=== PATIENT | male | born 1950 | race Caucasian/White ===

== ENCOUNTER 2022-04-08 07:58 | Emergency (ER) | payer MEDICAID, SELFPAY ==
--- NOTE | ~2022-04-08 | XR_ITS ---
EXAMINATION: XR CHEST CLINICAL INFORMATION: Cough. COMPARISON: None TECHNIQUE: Frontal view of the chest was obtained. FINDINGS: Bibasilar airspace opacities likely represent hypoventilatory, atelectatic changes or pleural parenchymal scar, less likely to be infiltrate. There are no prior studies available for comparison. The remainder of the lung carlton appear clear. The cardiac mediastinal silhouette is within normal limit. No evidence of any pleural effusion or pneumothorax. The visualized upper abdomen is unremarkable. XR/XR chest 1V IMPRESSION: Bibasilar airspace disease likely represent hypoventilatory, atelectatic changes or focal parenchymal scar and less likely to be infiltrate.
[2022-04-08 08:45] VITALS: BP 131/78; PULSE 94; RESP 18; TEMP 37.8; O2SAT 95; BMI 29.5
[2022-04-08 09:04] LABS: Strep A Nucleic Acid Negative (Negative)
[2022-04-08 09:10] LABS: COVID-19 Test Negative (Negative); IDNOW Serial# 16C4AD1C; Influenza A Positive (Negative); Influenza B2 Negative (Negative)
--- NOTE | 2022-04-08 10:03 | ED.GENADULT ---
HPI - General Adult General Chief complaint: Upper Respiratory Symptoms Stated complaint: Flu symptoms Time Seen by Provider: 04/08/22 09:48 Source: patient and family (daughter) Mode of arrival: ambulatory Limitations: no limitations History of Present Illness HPI narrative: Patient is a 71 year old male presenting to the emergency department today with a cough and a sore throat. Patient states that for the last few days he has had a cough and now he is also having a sore throat. Patient denies any dizziness, lightheadedness, abdominal pain, nausea, vomiting, fever, chills, blurry vision, double vision, loss of vision, chest pain, difficulty breathing, shortness of breath, back pain, night sweats, pain with urination, increased urinary frequency, increased urinary urgency, blood in his urine or stool, syncope or a near syncopal episode, recent trauma or falls, bowel incontinence, bladder incontinence, bowel retention, bladder retention, or any other complaints at this time. Onset (ago): day(s) Severity: mild Severity scale (1-10): 3 Quality: dull Pain Consistency: constant Relieving factors: none Exacerbating factors: none Associated symptoms: cough Treatments prior to arrival: none Related Data Previous Rx's Medication Instructions Recorded benzonatate 100 mg capsule 100 mg PO TID PRN 7 Days #21 cap 04/08/22 lidocaine HCl 2 % mucosal solution 1 ml MUCOUS MEMBRANE BID PRN 7 04/08/22 (Lidocaine Viscous) Days #100 ml penicillin V potassium 500 mg 500 mg PO BID 10 Days #20 tab 04/08/22 tablet Allergies Allergy/AdvReac Type Severity Reaction Status Date / Time No Known Allergies Allergy Verified 04/08/22 08:47 Review of Systems Constitutional: Constitutional: Reports no additional constitutional complaints, Denies chills, Denies fever(s) and Denies night sweats Eyes: Eyes: Reports no additional eye complaints, Denies blurry vision, Denies change in vision, Denies diplopia, Denies eye discharge, Denies loss of vision and Denies eye pain ENT: Denies dizziness and Reports sore throat Cardiovascular: Cardiovascular: Reports no additional cardiovascular complaints, Denies chest pain, Denies lightheadedness, Denies Loss of Consciousness and Denies dyspnea Respiratory: Respiratory: Reports no additional respiratory complaints, Reports cough and Denies dyspnea Gastrointestinal: Gastrointestinal: Reports no additional gastrointestinal complaints, Denies abdominal pain, Denies melena, Denies hematochezia, Denies change in bowel habits and Denies change in stool character Genitourinary: Genitourinary: Reports no additional male genitourinary complaints, Denies hematuria, Denies oliguria, Denies difficulty urinating, Denies dysuria, Denies urinary frequency, Denies urinary hesitancy, Denies urinary incontinence and Denies urinary urgency Musculoskeletal: Musculoskeletal: Reports no additional musculoskeletal complaints, Denies numbness and Denies tingling Neurologic: Denies dizziness, Denies loss of vision, Denies numbness and Denies tingling Psychiatric: Psychiatric: Reports no additional psychiatric complaints Endocrine: Endocrine: Reports no additional endocrine complaints Hematologic/Lymphatic: Hematologic/Lymphatic: Reports no additional hematologic/lymphatic complaints Allergic/Immunologic: Allergic/Immunologic: Reports no additional allergic/immunologic complaints [facility] Past Medical History Attestation statement: The following information was validated with the patient. Source: old records reviewed Social History Social History Advance Directives: No Advance Directives Information Provided: Yes Physical Exam ED Vital Signs: Vital Signs - 24 hr 04/08/22 08:45 Temperature 100.0 F Pulse Rate 94 Respiratory Rate 18 Blood Pressure 131/78 Pulse Oximetry 95 BMI result Body Mass Index 29.5 Const General: cooperative, no acute distress, alert and awake Nutritional Appearance: well nourished Orientation/consciousness: patient oriented x3 Limitations: no limitations HENMT Head: Yes normal to inspection and Yes atraumatic Ears: hearing grossly normal bilaterally and external ears normal General nose exam: Normal external nose present, no nasal discharge noted and no epistaxis Face and sinus: Yes normal facial exam, No abrasion and No laceration Mouth: no drooling, no muffled voice and other (posterior pharynx is erythematous) Eyes General: appearance normal, both eyes and all related structures Periorbital: periorbital findings normal Eyelids: Yes eyelids normal Conjunctivae: conjunctivae normal Pupils: Equal, round and reactive pupils present EOM: EOMs intact bilaterally Neck Neck: Yes normal visual inspection, Yes full ROM and Yes no lymphadenopathy Chest Chest palpation & inspection: normal inspection of the chest Resp Effort & Inspection: normal respiratory effort and able to speak in complete sentences Auscultation: clear to auscultation bilaterally Cardio Rate: regular rate Rhythm: regular rhythm GI Inspection: Yes normal to inspection Neuro General: patient oriented x3 and moves all extremities Cranial nerves: Yes Equal, round and reactive pupils present Cognition (Neuro): normal cognition Motor exam (neuro): 5/5 motor strength present throughout Sensory Exam: Normal double simultaneous stimulation for sensation Coordination: [id number] test normal Extrem General: Yes normal to inspection, Yes full ROM and Yes capillary refill normal Psych Appearance: grossly normal Mental Status: mental status grossly normal Affect: normal affect Attitude: cooperative Thought process: Normal thought process present Thought content: Normal thought content present Insight: Good insight present (Psych) Medical Decision Making MDM Narrative Medical decision making narrative: Patient is a 71 year old male presenting to the emergency department today with a cough and sore throat. Patient's physical exam showed posterior pharynx showed some erythema. Patient's influenza was positive. Patient's chest x-ray showed no acute process. I explained my physical exam findings as well as all test results to the patient and the patient's daughter. I answered all questions asked by the patient and the patient's daughter. I stressed the importance of the patient taking his medication as prescribed. I stressed the importance of the patient following up with his primary care provider. I stressed the importance of the patient returning to the emergency department immediately if his symptoms were to worsen or if he were to develop any dizziness, shortness of breath, difficulty breathing, chest pain, blurry vision, loss of vision, nausea, vomiting, abdominal pain, fever, chills, back pain, or any other complaints. Patient verbalized agreement and understanding with this treatment plan and discharge. Differential Diagnosis Differential Diagnosis: influenza, pharyngitis Medical Records Medical records reviewed: Yes I reviewed the patient's medical records. Lab Data Lab results reviewed: Yes I reviewed the patient's lab results. Labs: Lab Results 04/08/22 04/08/22 04/08/22 Range/Units 08:51 08:51 08:51 COVID-19 (ARIAN) Negative (Negative) COVID-19 Clin Com See Note Influenza Type A (LEONIE) Positive A (Negative) Influenza Type B (LEONIE) Negative (Negative) Influenza A & B Note See Note S. pyogenes GrpA LEONIE Negative (Negative) Imaging Data Chest x-ray: Attestation: I personally reviewed and interpreted this imaging study as follows: My impression: No acute process. Radiologist's impression: EXAMINATION: XR CHEST CLINICAL INFORMATION: Cough. COMPARISON: None TECHNIQUE: Frontal view of the chest was obtained. FINDINGS: Bibasilar airspace opacities likely represent hypoventilatory, atelectatic changes or pleural parenchymal scar, less likely to be infiltrate. There are no prior studies available for comparison. The remainder of the lung carlton appear clear. The cardiac mediastinal silhouette is within normal limit. No evidence of any pleural effusion or pneumothorax. The visualized upper abdomen is unremarkable. XR/XR chest 1V IMPRESSION: Bibasilar airspace disease likely represent hypoventilatory, atelectatic changes or focal parenchymal scar and less likely to be infiltrate. Dictated By: Izabela Castano MD Signed By: Electronically signed by Izabela Castano MD 04/08/22 0942 Discharge Plan Discharge Clinical Impression: Influenza, Pharyngitis Patient Disposition: Home, Self-Care Instructions: Pharyngitis (ED), Influenza (DC) Additional Instructions: Follow up with your primary care provider. Return to the emergency department immediately if your symptoms worsen or if you develop any dizziness, shortness of breath, difficulty breathing, chest pain, blurry vision, loss of vision, nausea, vomiting, abdominal pain, fever, chills, back pain, or any other complaints. Prescriptions: New benzonatate 100 mg capsule 100 mg PO TID PRN (Reason: cough) 7 Days Qty: 21 0RF lidocaine HCl [Lidocaine Viscous] 2 % solution 1 ml mucous membrane BID PRN (Reason: pain) 7 Days Qty: 100 0RF penicillin V potassium 500 mg tablet 500 mg PO BID 10 Days Qty: 20 0RF Referrals: Sandra Aguillon MD [Primary Care Provider] - Interventions: ED Discharge Assessment Last Done: 04/08/22 10:44 Discharge Date/Time: 04/08/22 10:45 Print Language: Irish
== END 2022-04-08 10:45 | disposition home or self-care (01) ==
PROVIDERS: Emergency Provider Emergency Medicine; PCP Internal Medicine
DX: J11.1 Influenza due to unidentified influenza virus with other respiratory manifestations (principal); J02.9 Acute pharyngitis, unspecified; Z20.822 Contact with and (suspected) exposure to COVID-19
CPT/HCPCS: 71045; 87502; 87635; 87651; 99283

== ENCOUNTER 2022-07-12 08:36 | Outpatient (REF) | payer MEDICAID, SELFPAY ==
[2022-07-12 11:21] LABS: MANUAL DIFF FLAG NO
[2022-07-12 11:34] LABS: Basophils Percent Auto 0.6 % (0-2); Eosinophils Absolute Auto 0.2 X10*3/uL (0.0-0.4); Eosinophils Percent Auto 2.9 % (0-4); Hemoglobin 15.3 g/dl (14.0-18.0); Imm Gran Abs Auto 0.04 X10*3/uL (0.00-0.03); Imm Gran Pct Auto 0.8 % (0.0-0.4); Lymphocytes Absolute Auto 1.9 X10*3/uL (1.2-4.9); Lymphocytes Percent Auto 35.9 % (20-40); Mean Corpuscular Hemoglobin 30.4 pg (27.0-33.0); Mean Corpuscular Volume 89.3 fL (80.0-98.0); Monocytes Absolute Auto 0.4 X10*3/uL (0.1-1.2); Monocytes Percent Auto 7.3 % (2-11); Neutrophils Absolute Auto 2.7 x10*3/uL (2.0-8.3); Neutrophils Percent Auto 52.5 % (45-73); Platelet Count 205 X10*3/uL (160-400); Red Blood Count 5.04 X10*6/uL (4.60-5.80); Red Cell Distribution Width 12.4 % (11.0-16.0); White Blood Count 5.2 X10*3/uL (4.8-10.8)
[2022-07-12 11:35] LABS: Appearance Urine Clear; Color Urine Yellow; Glucose Urine UA Negative (Negative); Leukocyte Esterase Urine Negative (Negative); Nitrite Urine Negative (Negative); PH 5.5 (5.0-8.0); Urine Blood Negative (Negative); Urine Ketones Negative (Negative); Urine Protein Negative (Neg-Trace)
[2022-07-12 11:45] LABS: Bacteria Urine None Seen (None Seen); Hyaline Casts Urine 0-2 /LPF (0-2); RBC Urine 0-2 /HPF (0-2); Squamous Epithelial Cell Urine 0-2 /HPF (0-2); WBC Urine 0-5 /HPF (0-5)
[2022-07-12 12:09] LABS: Alanine Aminotransferase 12 U/L (0-40); Albumin Level 4.4 g/dL (3.5-5.0); Alkaline Phosphatase 64 U/L (39-117); Anion Gap 12 (12-20); Aspartate Amino Transferase 17 U/L (5-37); Bilirubin Total 0.9 mg/dL (0.0-1.0); Blood Urea Nitrogen 13 mg/dL (9-16); Calcium 9.1 mg/dL (8.4-10.2); Carbon Dioxide 25 mmol/L (22-29); Chloride 108 mmol/L (96-108); Cholesterol 143 mg/dL; Estimated Glomerular Filt Rate > 60; Glucose Fasting 97 mg/dL (60-99); HDL Cholesterol 40 mg/dL; LDL Cholesterol Calculated 90 mg/dl; Potassium 4.4 mmol/L (3.3-5.1); Sodium 141 mmol/L (135-145); Triglycerides 66 mg/dL
[2022-07-12 12:13] LABS: PSA,Total (Free>4and<10) 5.33 ng/mL (0.00-4.00)
[2022-07-13 09:42] LABS: Free Prostate Spec Ag 1.8 ng/mL; Percent Free Prostate Spec Ag 31 % (calc) (>25); Prostate Specific Ag Total 5.9 ng/mL (< OR = 4.0)
== END 2022-07-12 08:37 | disposition home or self-care (01) ==
LOC: HO.HMGCLDS 08:36
PROVIDERS: PCP Internal Medicine; Visit Provider Internal Medicine
DX: Z00.00 Encounter for general adult medical examination without abnormal findings (principal); Z12.5 Encounter for screening for malignant neoplasm of prostate; I10 Essential (primary) hypertension; N40.0 Benign prostatic hyperplasia without lower urinary tract symptoms; Z90.49 Acquired absence of other specified parts of digestive tract
CPT/HCPCS: 36415; 80053; 80061; 81001; 84153; 84154; 85025

== ENCOUNTER 2022-08-21 13:58 | Outpatient (REF) | payer MEDICAID, SELFPAY ==
--- NOTE | ~2022-08-21 | US_ITS ---
EXAMINATION: US PELVIS LIMITED (BLADDER) CLINICAL INFORMATION: Elevated BPH. COMPARISON: None TECHNIQUE: Real-time imaging of the bladder. FINDINGS: BLADDER: Adequately distended. Mildly thick walled presumably related to detrussor hypertrophy. Bilateral ureteral jets are demonstrated. Prevoid bladder volume is 211 mL. Postvoid bladder volume is 133 mL. PROSTATE enlarged measuring 6.2 x 5.1 x 6.3 cm from 105 mL. US/US bladder IMPRESSION: Marked prostatomegaly with significant post void residual. Detrussor hypertrophy
== END 2022-08-21 13:59 | disposition home or self-care (01) ==
LOC: HO.HMGCX 13:58
PROVIDERS: PCP Internal Medicine; Visit Provider Internal Medicine
DX: N40.0 Benign prostatic hyperplasia without lower urinary tract symptoms (principal)
CPT/HCPCS: 76857

== ENCOUNTER 2022-12-07 09:59 | Outpatient (REF) | payer MEDICAID, SELFPAY ==
--- NOTE | ~2022-12-07 | US_ITS ---
EXAMINATION: US PELVIS LIMITED (BLADDER) CLINICAL INFORMATION: Retention of urine, unspecified. COMPARISON: Bladder ultrasound 08/21/2022. TECHNIQUE: Real-time imaging of the bladder. FINDINGS: BLADDER: Partially distended with a slightly thickened wall. Bilateral ureteral jets are demonstrated. Prevoid bladder volume is 126 mL. Postvoid bladder volume is 52.3 mL. Enlarged prostate, volume 101 mL. US/US bladder IMPRESSION: Enlarged 101 mL prostate with 52.3 mL postvoid residual.
== END 2022-12-07 10:00 | disposition home or self-care (01) ==
LOC: HO.HMGCX 09:59
PROVIDERS: PCP Internal Medicine; Visit Provider Internal Medicine
DX: N40.0 Benign prostatic hyperplasia without lower urinary tract symptoms (principal); R33.9 Retention of urine, unspecified
CPT/HCPCS: 76857

== ENCOUNTER → 2023-02-05 10:30 | Outpatient (BNVA) | payer MEDICAID, SELFPAY | PROVIDERS: PCP Internal Medicine; Visit Provider Urology | DX: R97.20 Elevated prostate specific antigen [PSA] (principal); N40.0 Benign prostatic hyperplasia without lower urinary tract symptoms | CPT/HCPCS: 51798; 99202 ==

== ENCOUNTER 2023-06-05 12:43 | Outpatient (AMB) | payer MEDICAID, SELFPAY ==
--- NOTE | 2023-06-05 13:03 | MHC.PC.OV ---
Vital Signs 06/05/23 13:04 Height 5 ft 11 in Weight 217 lb BMI 30.3 BP 124/68 Blood Pressure Location Rt brachial Position Sitting Pulse 62 Pulse Source Pulse Oximeter Pulse Oximetry (%) 95 Oxygen Delivery Method Room Air Intake Visit Reasons: Annual PE Intake Note: Pt is here today for his PE Allergies tamsulosin Adverse Reaction (Intermediate, Verified 06/05/23 13:03) Hypotension Medication List - Last Reconciled 06/05/23 by Sandra Aguillon MD amlodipine 5 mg PO DAILY finasteride 5 mg PO DAILY 90 days lisinopril 10 mg PO DAILY Tobacco use date assessed: 06/05/23 Fall risk assessment: No Falls in past year Last assessed Fall Risk: 06/05/23 Dental Screening Dental Screen Date: 06/05/23 Did you have a dental visit in the last 12 months?: Yes Did you have a dental problem in the last 6 months where you did not have access to dental care?: No Was dental information given to patient?: Patient has dentist HPI Annual PE HPI Details Pt presents for PE. PFSH Family History Father No problems noted. Mother No problems noted. Social History Housing: House Patient Tobacco Use Status: Never used Tobacco e-Cigarette/Vaping Use: Never Used Current occupational status: retired Cognitive needs: No Hearing needs: No Vision needs: Yes Questionnaire Thrive Questionnaire Date Thrive assessed: 12/18/22 KATTY-7 AMB Questionnaire KATTY-7 Date KATTY - 7 assessed: 12/18/22 Source: Developed by Drs. Fawad Espinoza, Karlene Pardo, Danny Summers and colleagues, with an educational ninfa from [employer]. Review of Systems Const All systems reviewed & are unremarkable except as noted in HPI and below Reports no additional complaints Eyes Reports no additional complaints ENT Reports no additional complaints Card Reports no additional complaints Resp Reports no additional complaints GI Reports no additional complaints Reports no additional complaints Physical exam (Primary Care) Vital Signs: Last Vital Signs Pulse 62 06/05/23 13:04 BP 124/68 06/05/23 13:04 Pulse Ox 95 06/05/23 13:04 Oxygen Delivery Method Room Air 06/05/23 13:04 BMI result Body Mass Index 30.3 Tobacco/Smoking Status: Tobacco use Status Tobacco use date assessed 06/05/23 06/05/23 13:08 Patient Tobacco Use Status Never used Tobacco 06/05/23 13:08 e-Cigarette/Vaping Use Never Used 06/05/23 13:08 Thrive Assessment: Date of Thrive Assessment Date Thrive assessed 12/18/22 06/05/23 13:08 Const General: no acute distress HENMT Head: Yes normal to inspection Ears: hearing grossly normal bilaterally General nose exam: Normal external nose present Face and sinus: Yes normal facial exam Mouth: Normal oral and palatal mucosa present Throat: Yes posterior oropharynx normal Eyes General: appearance normal, both eyes and all related structures Neck Neck: Yes no lymphadenopathy and Yes supple Resp Effort & Inspection: normal respiratory effort Auscultation: clear to auscultation bilaterally Cardio Rhythm: regular rhythm Heart sounds: S1 normal heart sound present and S2 normal heart sound present GI Inspection: Yes normal to inspection Palpation (GI): Soft to palpation Percussion: Yes normal to percussion Auscultation: normal bowel sounds Assessment and Plan Assessment & Plan (1) Elevated PSA: Comment: enlarged prostate 104 ml 10/09, increased from volume 85 ml in 2020, referred to urology Code(s): R97.20 - Elevated prostate specific antigen [PSA] Plan: cont Finasteride (2) HTN (hypertension): Code(s): I10 - Essential (primary) hypertension Plan: cont meds, return for fasting labs (3) Annual physical exam: Code(s): Z00.00 - Encounter for general adult medical examination without abnormal findings Plan: cologard negative 08/09, well balanced diet and regular exercise discussed Coding Level of Care Code Est Pt Prev Care >65y(19638) Diagnoses Elevated PSA R97.20 HTN (hypertension) I10 Annual physical exam Z00.00
[2023-06-05 13:04] VITALS: BP 124/68; PULSE 62; O2SAT 95; BMI 30.3
== END 2023-06-05 13:47 | disposition home or self-care (01) ==
PROVIDERS: Visit Provider Internal Medicine
DX: R97.20 Elevated prostate specific antigen [PSA] (principal); I10 Essential (primary) hypertension; Z00.00 Encounter for general adult medical examination without abnormal findings
CPT/HCPCS: 99397

== ENCOUNTER 2023-07-04 08:50 | Outpatient (REF) | payer MEDICAID, SELFPAY ==
[2023-07-04 11:17] LABS: MANUAL DIFF FLAG NO
[2023-07-04 11:29] LABS: Basophils Percent Auto 0.4 % (0-2); Eosinophils Absolute Auto 0.1 X10*3/uL (0.0-0.4); Eosinophils Percent Auto 2.2 % (0-4); Hematocrit 44.6 % (42.0-52.0); Imm Gran Abs Auto 0.02 X10*3/uL (0.00-0.03); Imm Gran Pct Auto 0.4 % (0.0-0.4); Lymphocytes Absolute Auto 1.9 X10*3/uL (1.2-4.9); Lymphocytes Percent Auto 37.4 % (20-40); Mean Corpuscular HGB Conc 33.6 g/dl (31.0-36.0); Mean Corpuscular Hemoglobin 30.5 pg (27.0-33.0); Mean Corpuscular Volume 90.7 fL (80.0-98.0); Mean Platelet Volume 10.9 fL (9.4-12.4); Monocytes Absolute Auto 0.4 X10*3/uL (0.1-1.2); Monocytes Percent Auto 8.7 % (2-11); Neutrophils Absolute Auto 2.5 x10*3/uL (2.0-8.3); Neutrophils Percent Auto 50.9 % (45-73); Platelet Count 202 X10*3/uL (160-400); Red Blood Count 4.92 X10*6/uL (4.60-5.80); Red Cell Distribution Width 12.4 % (11.0-16.0); White Blood Count 4.9 X10*3/uL (4.8-10.8)
[2023-07-04 11:57] LABS: Alanine Aminotransferase 11 U/L (0-40); Albumin Level 4.2 g/dL (3.5-5.0); Alkaline Phosphatase 65 U/L (39-117); Anion Gap 10 (12-20); Aspartate Amino Transferase 16 U/L (5-37); Bilirubin Total 0.9 mg/dL (0.0-1.0); Blood Urea Nitrogen 18 mg/dL (9-16); Calcium 9.3 mg/dL (8.4-10.2); Carbon Dioxide 27 mmol/L (22-29); Chloride 108 mmol/L (96-108); Estimated Glomerular Filt Rate > 60; Glucose Fasting 95 mg/dL (60-99); Potassium 4.3 mmol/L (3.3-5.1); Sodium 141 mmol/L (135-145)
== END 2023-07-04 08:51 | disposition home or self-care (01) ==
LOC: HO.HMGCLDS 08:50
PROVIDERS: PCP Internal Medicine; Visit Provider Internal Medicine
DX: Z00.00 Encounter for general adult medical examination without abnormal findings (principal); I10 Essential (primary) hypertension
CPT/HCPCS: 36415; 80053; 85025

== ENCOUNTER 2023-09-04 09:44 | Outpatient (REF) | payer MEDICAID, SELFPAY ==
[2023-09-04 12:11] LABS: PSA,Total (Free>4and<10) 3.34 ng/mL (0.00-4.00)
== END 2023-09-04 09:45 | disposition home or self-care (01) ==
LOC: HO.HMGCLDS 09:44
PROVIDERS: PCP Internal Medicine; Visit Provider Urology
DX: R97.20 Elevated prostate specific antigen [PSA] (principal)
CPT/HCPCS: 36415; 84153

== ENCOUNTER 2023-09-06 10:38 | Outpatient (AMB) | payer MEDICAID, SELFPAY ==
--- NOTE | 2023-09-06 10:39 | MHC.OFFVIS ---
Intake Intake Visit Reasons: 6m/PSA(set) Intake Note: Patient is Present for Telephone Follow Up PSA Urology Med: Finasteride Antibiotic Allergy: None Blood Thinner: None Pharamcy: [facility] Allergies tamsulosin Adverse Reaction (Intermediate, Verified 06/05/23 13:03) Hypotension Medication List - Last Reconciled 09/06/23 by Matt Ocampo MD amlodipine 5 mg PO DAILY finasteride 5 mg PO DAILY 90 days lisinopril 10 mg PO DAILY HPI HPI Comments History of Present Illness Details Angel is a pleasant Syrian male. He is a patient of Dr. Aguillon. He is seen for following urologic conditions - lower urinary tract symptoms Telemedicine Evaluation 15 min Consultation [employer] Video attempted Syrian translation provided by daughter who is comfortable translating Significant fall in PSA. Significant improvement in urinary performance. Minimal nocturia now. Happy with bladder emptying. Six month follow-up repeat PSA Lower urinary tract symptoms Progressive weakness of stream, occasional nocturia, incomplete bladder emptying Did not tolerate tamsulosin secondary to blood pressure issues Had been concerned about starting finasteride PSA - 07/09 5.9 31%, 09/09 3.4 Reassurance provided Finasteride continue 6 month follow-up PSA PFS Family History Father No problems noted. Mother No problems noted. Social History Housing: House Patient Tobacco Use Status: Never used Tobacco e-Cigarette/Vaping Use: Never Used Current occupational status: retired Cognitive needs: No Hearing needs: No Vision needs: Yes Review of Systems Const All systems reviewed & are unremarkable except as noted in HPI and below Reports no additional complaints Resp Reports no additional complaints GI Reports no additional complaints Reports as per HPI Musc Reports no additional complaints Physical Exam Telemedicine evaluation Appropriate responses Regular breathing rate and rhythm HEENT Head: Yes normal to inspection Ears: hearing grossly normal bilaterally Eyes General: appearance normal, both eyes and all related structures Neck Neck: Yes normal visual inspection Chest Chest palpation & inspection: normal inspection of the chest Resp Effort & Inspection: normal respiratory effort and able to speak in complete sentences Assessment & Plan Assessment & Plan (1) Elevated PSA: Comment: enlarged prostate 104 ml 10/09, increased from volume 85 ml in 2020, referred to urology Code(s): R97.20 - Elevated prostate specific antigen [PSA] (2) BPH (benign prostatic hyperplasia): Comment: Borderline elevated PSA around 5 in [place] Code(s): N40.0 - Benign prostatic hyperplasia without lower urinary tract symptoms Qualifiers: Lower urinary tract symptom detail: weak urinary stream Lower urinary tract symptom presence: symptoms present Qualified Code(s): N40.1 - Benign prostatic hyperplasia with lower urinary tract symptoms; R39.12 - Poor urinary stream Plan Six month follow-up Orders: Orders PSA,Total (Free>4and<10) 6 Months R97.20 - Elevated prostate specific antigen [PSA] Medications: Refilled finasteride 5 mg PO DAILY 90 tabs 1RF 90 days N13.8 - Other obstructive and reflux uropathy, N40.1 - Benign prostatic hyperplasia with lower urinary tract symptoms, R33.9 - Retention of urine, unspecified, R97.20 - Elevated prostate specific antigen [PSA] Patient Instructions: Imaging studies, laboratory and physical exam results were discussed and reviewed in detail. No major barriers to patient understanding were identified. An opportunity to ask questions regarding the treatment plan was provided. All questions were answered. The patient expressed understanding and agreement with the above treatment plan. The patient is aware they should contact our office by phone for worsening of their current condition or the appearance of new urologic symptoms. Compliance is encouraged with any medications and followup testing that is ordered. It is a privilege to participate in the urologic care of your patient. If you have any questions or concerns regarding treatment for the above conditions, or other urologic issues, please do not hesitate to contact me. The office telephone contact is [phone]. This note is constructed using voice recognition software. While every effort has been made to ensure accuracy consumer services advisor errors may have been included. Yours sincerely, Dr Matt Ocampo MD, [facility] - Urology Providers of Expert, Compassionate Care for the Genitourinary System Telehealth Telehealth Location of provider rendering services: practice address Location of patient: address on file Patient Identification confirmed using: Name, : Yes Telehealth method: voice only Patient verbally consented to treatment: Yes Patient verbally consented to billing insurance company: Yes Patient informed of any privacy concerns related to visit: Yes Coding Level of Care Code Tele Est Pt Level 3 (94378) Diagnoses Elevated PSA R97.20 Benign prostatic hyperplasia with weak urinary stream N40.1; R39.12 Lower urinary tract symptom detail: weak urinary stream Lower urinary tract symptom presence: symptoms present
== END 2023-09-06 11:18 | disposition home or self-care (01) ==
LOC: HO.HUSH 10:38
PROVIDERS: PCP Internal Medicine; Visit Provider Urology
DX: R97.20 Elevated prostate specific antigen [PSA] (principal); N40.1 Benign prostatic hyperplasia with lower urinary tract symptoms; R39.12 Poor urinary stream
CPT/HCPCS: 99213

== ENCOUNTER → 2023-09-06 10:38 | Outpatient (BNVA) | payer MEDICAID, SELFPAY | PROVIDERS: PCP Internal Medicine; Visit Provider Urology ==

== ENCOUNTER 2023-09-16 11:07 | Outpatient (AMB) | payer MEDICAID, SELFPAY ==
[2023-09-16 11:22] VITALS: BP 140/78; PULSE 66; O2SAT 98; BMI 30.7
--- NOTE | 2023-09-16 11:22 | A.OFFPC_ITS ---
Vital Signs 09/16/23 11:22 Height 5 ft 11 in Weight 220 lb BMI 30.7 BP 140/78 H Blood Pressure Location Lt brachial Position Sitting Pulse 66 Pulse Source Pulse Oximeter Pulse Oximetry (%) 98 Oxygen Delivery Method Room Air Intake Visit Reasons: Discuss imbalance Intake Note: Pt is here today for a sick visit. Pt c/o L heel pain. Pt states that he had broken L heel 5 years ago. Pt states that he had severe pain 3 weesk ago, and now its come and goes pt c/o swelling in his left calf. Allergies tamsulosin Adverse Reaction (Intermediate, Verified 09/16/23 11:28) Hypotension Medication List - Last Reconciled 09/16/23 by Sandra Aguillon MD amlodipine 5 mg PO DAILY finasteride 5 mg PO DAILY 90 days lisinopril 10 mg PO DAILY Tobacco use date assessed: 09/16/23 Dental Screening Dental Screen Date: 09/16/23 Did you have a dental visit in the last 12 months?: Yes Did you have a dental problem in the last 6 months where you did not have access to dental care?: No Was dental information given to patient?: Patient has dentist HPI Discuss imbalance HPI Details Pt c/o L heel pain for 3 weeks pain worse at the end a day. Patient reports left lower extremity swelling in the end of the day. He denies any injury but had a midfoot fracture 5 years ago. Hypertension is controlled on current medications [facility] Family History Father No problems noted. Mother No problems noted. Social History Housing: House Patient Tobacco Use Status: Never used Tobacco e-Cigarette/Vaping Use: Never Used Current occupational status: retired Cognitive needs: No Hearing needs: No Vision needs: Yes Questionnaire Thrive Questionnaire Date Thrive assessed: 12/18/22 KATTY-7 AMB Questionnaire KATTY-7 Date KATTY - 7 assessed: 12/18/22 Source: Developed by Drs. Fawad Espinoza, Karlene Pardo, Danny Summers and colleagues, with an educational ninfa from [email or web address]. Review of Systems Const All systems reviewed & are unremarkable except as noted in HPI and below Reports no additional complaints Eyes Reports no additional complaints ENT Reports no additional complaints Card Reports no additional complaints Resp Reports no additional complaints GI Reports no additional complaints Reports no additional complaints Physical exam (Primary Care) Vital Signs: Last Vital Signs Pulse 66 09/16/23 11:22 BP 140/78 H 09/16/23 11:22 Pulse Ox 98 09/16/23 11:22 Oxygen Delivery Method Room Air 09/16/23 11:22 BMI result Body Mass Index 30.7 Tobacco/Smoking Status: Tobacco use Status Tobacco use date assessed 09/16/23 09/16/23 11:28 Patient Tobacco Use Status Never used Tobacco 09/16/23 11:22 e-Cigarette/Vaping Use Never Used 09/16/23 11:22 Thrive Assessment: Date of Thrive Assessment Date Thrive assessed 12/18/22 09/16/23 11:22 Const General: no acute distress Neck Neck: Yes supple Resp Effort & Inspection: normal respiratory effort Auscultation: clear to auscultation bilaterally Cardio Rhythm: regular rhythm Heart sounds: S1 normal heart sound present and S2 normal heart sound present Extrem Other: Reproducible tenderness at the bottom of left heel, left ankle with full range of motion, 1+ pitting edema bilaterally. no L calf tenderness Assessment and Plan Assessment & Plan (1) Pain of left heel: Code(s): M79.672 - Pain in left foot Plan: check XR , Meloxicam 15 mg for 10 days and home exercises. Pt declined PT (2) HTN (hypertension): Code(s): I10 - Essential (primary) hypertension Plan: CONTINUE MEDICATIONS Orders: Orders XR foot LT min 3V Today M79.672 - Pain in left foot Medications: New meloxicam 15 mg PO DAILY 10 tabs 0RF Coding Level of Care Code Est Pt Level 4 (85534) Diagnoses Pain of left heel M79.672 HTN (hypertension) I10
== END 2023-09-16 11:50 | disposition home or self-care (01) ==
PROVIDERS: PCP Internal Medicine; Visit Provider Internal Medicine
DX: M79.672 Pain in left foot (principal); I10 Essential (primary) hypertension
CPT/HCPCS: 99214

== ENCOUNTER 2023-09-16 11:40 | Outpatient (REF) | payer MEDICAID, SELFPAY ==
--- NOTE | ~2023-09-16 | XR_ITS ---
EXAMINATION: XR FOOT, LEFT CLINICAL INFORMATION: Left foot pain at the dorsal/posterior aspect of the calcaneus. COMPARISON: None available. TECHNIQUE: AP, lateral, and oblique views of the left foot. FINDINGS: The bones are diffusely demineralized. Mild degenerative changes with joint space narrowing and hypertrophic change at the 1st metatarsophalangeal joint. Bony spurring/hypertrophic change along the lateral aspect of the base of the 5th metatarsal. Moderate dorsal calcaneal spurring identified in the area of concern indicated by the radiopaque marker placed to indicate the area of concern indicated by the patient. XR/XR foot LT min 3V IMPRESSION: 1. Moderate bony spurring/hypertrophic change along the lateral aspect of the base of the 5th metatarsal. 2. Moderate dorsal calcaneal spurring identified in the area of concern indicated by the radiopaque marker placed to indicate the area of concern indicated by the patient Recommend followup imaging in 10-14 days if fracture is suspected.
== END 2023-09-16 11:41 | disposition home or self-care (01) ==
LOC: HO.HMGCX 11:40
PROVIDERS: PCP Internal Medicine; Visit Provider Internal Medicine
DX: M79.672 Pain in left foot (principal)
CPT/HCPCS: 73630

== ENCOUNTER 2023-12-12 12:30 | Outpatient (AMB) | payer MEDICAID, SELFPAY ==
[2023-12-12 12:32] VITALS: BP 128/76; PULSE 73; O2SAT 97; BMI 30.7
--- NOTE | 2023-12-12 12:32 | A.OFFPC_ITS ---
Vital Signs 12/12/23 12:32 Height 5 ft 11 in Weight 220 lb BMI 30.7 BP 128/76 Blood Pressure Location Lt brachial Position Sitting Pulse 73 Pulse Source Pulse Oximeter Pulse Oximetry (%) 97 Oxygen Delivery Method Room Air Intake Visit Reasons: 6m follow up Allergies tamsulosin Adverse Reaction (Intermediate, Verified 12/12/23 12:42) Hypotension Medication List - Last Reconciled 12/12/23 by Sandra Aguillon MD amlodipine 5 mg PO DAILY finasteride 5 mg PO DAILY 90 days lisinopril 10 mg PO DAILY Tobacco use date assessed: 12/12/23 Fall risk assessment: No Falls in past year Last assessed Fall Risk: 12/12/23 Dental Screening Dental Screen Date: 12/12/23 Did you have a dental visit in the last 12 months?: Yes Did you have a dental problem in the last 6 months where you did not have access to dental care?: No Was dental information given to patient?: Patient has dentist HPI 6m follow up HPI Details Pt presents for f/u HTN, BPH, stable on meds. PFSH Family History Father No problems noted. Mother No problems noted. Social History Housing: House Patient Tobacco Use Status: Never used Tobacco e-Cigarette/Vaping Use: Never Used Current occupational status: retired Cognitive needs: No Hearing needs: No Vision needs: Yes Questionnaire PHQ-9 Over the last 2 weeks, how often have you been bothered by any of the following problems? 1. Little interest or pleasure in doing things: not at all 2. Feeling down, depressed, or hopeless: not at all 3. Trouble falling or staying asleep, or sleeping too much: not at all 4. Feeling tired or having little energy: not at all 5. Poor appetite or overeating: not at all 6. Feeling bad about yourself - or that you are a failure or have let yourself or your family down: not at all 7. Trouble concentrating on things, such as reading the newspaper or watching television: not at all 8. Moving or speaking so slowly that other people could have noticed. Or the opposite - being so fidgety or restless that you have been moving around a lot more than usual: not at all 9. Thoughts that you would be better off or of hurting yourself in some way: not at all Total score: 0 Depression Screening Interpretation: Negative Depression Screening Done: Yes Source: Developed by Drs. Fawad Espinoza, Karlene Pardo, Danny Summers and colleagues, with an educational ninfa from [employer]. Thrive Questionnaire Date Thrive assessed: 12/12/23 I am a: Patient What is your living situation today?: I have a steady place to live Within the past 12 months, did the food you bought not last and you didn't have the money to get more?: Never true Within the past 12 months, did you worry whether your food would run out before you got money to buy more?: Never true Do you have trouble paying for medicines?: No Do you have trouble getting transportation to medical appointments?: No Do you have trouble paying your heating and electricity bill?: No Do you have trouble taking care of your child, family member or friend?: No Do you have trouble with day-to-day activities such as bathing, preparing meals, shopping, managing finances, etc.?: No Are you currently unemployed and looking for a job?: No Are you interested in more education?: No Please select the resources that you would like help with: None Currently or been in a relationship where the following occur: no concerns reported THRIVE Score: 0 AUDIT C Alcohol Use Questionnaire (AUDIT-C) 1. How often do you have a drink containing alcohol?: Never 3. How often do you have six or more drinks on one occasion?: Never Total Score: 0 KATTY-7 AMB Questionnaire KATTY-7 Date KATTY - 7 assessed: 12/12/23 Feeling nervous, anxious, or on edge: 0 = Not at all Not being able to stop or control worryin = Not at all Worrying too much about different things: 0 = Not at all Trouble relaxin = Not at all Being so restless that it is hard to sit still: 0 = Not at all Becoming easily annoyed or irritable: 0 = Not at all Feeling afraid as if something awful might happen: 0 = Not at all Total KATTY-7 score (0-4 normal; 5-9 mild; 10-14 moderate; 15-21 severe): 0 Source: Developed by Drs. Fawad Espinoza, Karlene Pardo, Danny Summers and colleagues, with an educational ninfa from [employer]. Review of Systems Const All systems reviewed & are unremarkable except as noted in HPI and below Reports no additional complaints Eyes Reports no additional complaints ENT Reports no additional complaints Card Reports no additional complaints Resp Reports no additional complaints GI Reports no additional complaints Reports no additional complaints Musc Reports no additional complaints Physical exam (Primary Care) Vital Signs: Last Vital Signs Pulse 73 12/12/23 12:32 BP 128/76 12/12/23 12:32 Pulse Ox 97 12/12/23 12:32 Oxygen Delivery Method Room Air 12/12/23 12:32 BMI result Body Mass Index 30.7 Tobacco/Smoking Status: Tobacco use Status Tobacco use date assessed 12/12/23 12/12/23 12:43 Patient Tobacco Use Status Never used Tobacco 12/12/23 12:43 e-Cigarette/Vaping Use Never Used 12/12/23 12:32 PHQ-9: PHQ-9 Score PHQ-9: Total score 0 12/12/23 12:46 Depression Screening Interpretation: Negative Thrive Assessment: Date of Thrive Assessment Date Thrive assessed 12/12/23 12/12/23 12:46 Currently or been in a relationship where the following occur: no concerns reported Const General: well developed HENMT Head: Yes normal to inspection Ears: hearing grossly normal bilaterally General nose exam: Normal external nose present Mouth: Normal oral and palatal mucosa present Throat: Yes posterior oropharynx normal Eyes General: appearance normal, both eyes and all related structures Neck Neck: Yes no lymphadenopathy and Yes supple Resp Effort & Inspection: normal respiratory effort Auscultation: clear to auscultation bilaterally Cardio Rhythm: regular rhythm Heart sounds: S1 normal heart sound present and S2 normal heart sound present GI Inspection: Yes normal to inspection Palpation (GI): Soft to palpation Percussion: Yes normal to percussion Auscultation: normal bowel sounds Assessment and Plan Assessment & Plan (1) Annual physical exam: Code(s): Z00.00 - Encounter for general adult medical examination without abnormal findings Plan: Return for fasting blood work (2) HTN (hypertension): Code(s): I10 - Essential (primary) hypertension Plan: Continue current medications (3) BPH (benign prostatic hyperplasia): Comment: Borderline elevated PSA around 5 in Mathew Code(s): N40.0 - Benign prostatic hyperplasia without lower urinary tract symptoms Qualifiers: Lower urinary tract symptom presence: symptoms present Lower urinary tract symptom detail: weak urinary stream Qualified Code(s): N40.1 - Benign prostatic hyperplasia with lower urinary tract symptoms; R39.12 - Poor urinary stream Plan: Check PSA follow-up with urology annually Orders: Orders Comprehensive [place]. Panel Fast Today I10 - Essential (primary) hypertension, N40.0 - Benign prostatic hyperplasia without lower urinary tract symptoms, Z00.00 - Encounter for general adult medical examination without abnormal findings Complete Blood Count Auto Diff Today I10 - Essential (primary) hypertension, N40.0 - Benign prostatic hyperplasia without lower urinary tract symptoms, Z00.00 - Encounter for general adult medical examination without abnormal findings PSA,Total (Free>4and<10) Today I10 - Essential (primary) hypertension, N40.0 - Benign prostatic hyperplasia without lower urinary tract symptoms, Z00.00 - Encounter for general adult medical examination without abnormal findings Lipid Panel Today I10 - Essential (primary) hypertension, N40.0 - Benign prostatic hyperplasia without lower urinary tract symptoms, Z00.00 - Encounter for general adult medical examination without abnormal findings Coding Level of Care Code Est Pt Level 3 (52679) Diagnoses Annual physical exam Z00.00 HTN (hypertension) I10 Benign prostatic hyperplasia with weak urinary stream N40.1; R39.12 Lower urinary tract symptom presence: symptoms present Lower urinary tract symptom detail: weak urinary stream
== END 2023-12-12 13:31 | disposition home or self-care (01) ==
PROVIDERS: PCP Internal Medicine; Visit Provider Internal Medicine
DX: I10 Essential (primary) hypertension (principal); N40.1 Benign prostatic hyperplasia with lower urinary tract symptoms; R39.12 Poor urinary stream
CPT/HCPCS: 99213

== ENCOUNTER 2023-12-19 09:47 | Outpatient (REF) | payer MEDICAID, SELFPAY ==
[2023-12-19 11:14] LABS: MANUAL DIFF FLAG NO
[2023-12-19 11:42] LABS: Basophils Percent Auto 0.8 % (0-2); Eosinophils Absolute Auto 0.1 X10*3/uL (0.0-0.4); Eosinophils Percent Auto 2.4 % (0-4); Hematocrit 46.2 % (42.0-52.0); Hemoglobin 15.6 g/dl (14.0-18.0); Imm Gran Abs Auto 0.03 X10*3/uL (0.00-0.03); Imm Gran Pct Auto 0.6 % (0.0-0.4); Lymphocytes Absolute Auto 1.7 X10*3/uL (1.2-4.9); Lymphocytes Percent Auto 34.1 % (20-40); Mean Corpuscular HGB Conc 33.8 g/dl (31.0-36.0); Mean Corpuscular Hemoglobin 30.3 pg (27.0-33.0); Mean Corpuscular Volume 89.7 fL (80.0-98.0); Mean Platelet Volume 10.7 fL (9.4-12.4); Monocytes Absolute Auto 0.4 X10*3/uL (0.1-1.2); Monocytes Percent Auto 8.1 % (2-11); Neutrophils Absolute Auto 2.7 x10*3/uL (2.0-8.3); Platelet Count 202 X10*3/uL (160-400); Red Blood Count 5.15 X10*6/uL (4.60-5.80); Red Cell Distribution Width 12.4 % (11.0-16.0)
[2023-12-19 12:14] LABS: Alanine Aminotransferase 14 U/L (0-40); Albumin Level 4.3 g/dL (3.5-5.0); Alkaline Phosphatase 67 U/L (39-117); Anion Gap 9 (12-20); Aspartate Amino Transferase 18 U/L (5-37); Bilirubin Total 0.8 mg/dL (0.0-1.0); Blood Urea Nitrogen 14 mg/dL (9-16); Calcium 9.5 mg/dL (8.4-10.2); Carbon Dioxide 30 mmol/L (22-29); Chloride 106 mmol/L (96-108); Cholesterol 152 mg/dL (<200); Estimated Glomerular Filt Rate > 60; Glucose Fasting 89 mg/dL (60-99); HDL Cholesterol 43 mg/dL (>40); LDL Cholesterol Calculated 94 mg/dL (<100); Potassium 4.3 mmol/L (3.3-5.1); Sodium 141 mmol/L (135-145); Total Protein 7.1 g/dL (6.5-8.0); Triglycerides 79 mg/dL (<150)
== END 2023-12-19 09:48 | disposition home or self-care (01) ==
LOC: HO.HMGCLDS 09:47
PROVIDERS: PCP Internal Medicine; Visit Provider Internal Medicine
DX: Z00.00 Encounter for general adult medical examination without abnormal findings (principal); Z12.5 Encounter for screening for malignant neoplasm of prostate; N40.0 Benign prostatic hyperplasia without lower urinary tract symptoms; I10 Essential (primary) hypertension
CPT/HCPCS: 36415; 80053; 80061; 84153; 85025

== ENCOUNTER 2024-02-25 11:15 | Outpatient (AMB) | payer MEDICAID, SELFPAY ==
[2024-02-25 11:35] VITALS: BP 118/80; PULSE 75; TEMP 36.6; O2SAT 95; BMI 30.3
--- NOTE | 2024-02-25 11:35 | MHC.PC.OV ---
Vital Signs 02/25/24 11:35 Height 5 ft 11 in Weight 217 lb 8 oz BMI 30.3 BP 118/80 Blood Pressure Location Lt brachial Position Sitting Pulse 75 Pulse Source Pulse Oximeter Temp 97.8 F Temp Source Temporal Artery Scan Pulse Oximetry (%) 95 Oxygen Delivery Method Room Air Intake Visit Reasons: Cough 2 weeks Intake Note: Pt is here for a cough for 2 weeks pt has had runny nose and congestion no fever Allergies tamsulosin Adverse Reaction (Intermediate, Verified 02/25/24 11:38) Hypotension Medication List - Last Reconciled 02/25/24 by Sandra Aguillon MD amlodipine 5 mg PO DAILY benzonatate 100 mg PO BID PRN doxycycline hyclate 100 mg PO BID finasteride 5 mg PO DAILY 90 days lisinopril 10 mg PO DAILY Tobacco use date assessed: 12/12/23 Fall risk assessment: No Falls in past year Last assessed Fall Risk: 02/25/24 Dental Screening Dental Screen Date: 02/25/24 Did you have a dental visit in the last 12 months?: Yes Did you have a dental problem in the last 6 months where you did not have access to dental care?: No Was dental information given to patient?: Patient has dentist HPI Cough 2 weeks HPI Details Patient complains of 2 weeks of productive cough with green sputum ,sinus congestion sore throat , headaches. He denies shortness of breath pleurisy PND or orthopnea. [facility] Family History Father No problems noted. Mother No problems noted. Social History Housing: House Patient Tobacco Use Status: Never used Tobacco e-Cigarette/Vaping Use: Never Used Current occupational status: retired Cognitive needs: No Hearing needs: No Vision needs: Yes Questionnaire Thrive Questionnaire Date Thrive assessed: 12/12/23 KATTY-7 AMB Questionnaire KATTY-7 Date KATTY - 7 assessed: 12/12/23 Source: Developed by Drs. Fawad Espinoza, Karlene Pardo, Danny Summers and colleagues, with an educational ninfa from [employer]. Review of Systems Const All systems reviewed & are unremarkable except as noted in HPI and below ENT Reports no additional complaints Card Reports no additional complaints Resp Reports no additional complaints GI Reports no additional complaints Physical exam (Primary Care) Vital Signs: Last Vital Signs Temp 97.8 F 02/25/24 11:35 Pulse 75 02/25/24 11:35 BP 118/80 02/25/24 11:35 Pulse Ox 95 02/25/24 11:35 Oxygen Delivery Method Room Air 02/25/24 11:35 BMI result Body Mass Index 30.3 Tobacco/Smoking Status: Tobacco use Status Tobacco use date assessed 12/12/23 02/25/24 11:42 Patient Tobacco Use Status Never used Tobacco 02/25/24 11:42 e-Cigarette/Vaping Use Never Used 02/25/24 11:42 Thrive Assessment: Date of Thrive Assessment Date Thrive assessed 12/12/23 02/25/24 11:42 HENMT Head: Yes normal to inspection Ears: TM's normal bilaterally Mouth: Normal oral and palatal mucosa present Throat: Yes posterior oropharynx normal Neck Neck: Yes no lymphadenopathy and Yes supple Resp Effort & Inspection: normal respiratory effort Auscultation: rhonchi Cardio Rhythm: regular rhythm Heart sounds: S1 normal heart sound present and S2 normal heart sound present Assessment and Plan Assessment & Plan (1) Bronchitis: Code(s): J40 - Bronchitis, not specified as acute or chronic Plan: Doxycycline 100 mg twice a day for 1 week and Tessalon Perles are prescribed. Supportive care discussed with the patient (2) HTN (hypertension): Code(s): I10 - Essential (primary) hypertension Plan: Continue current medications Medications: New benzonatate 100 mg PO BID PRN 14 caps 0RF cough doxycycline hyclate 100 mg PO BID 14 tabs 0RF Coding Level of Care Code Est Pt Level 3 (17759) Diagnoses Bronchitis J40 HTN (hypertension) I10
== END 2024-02-25 11:53 | disposition home or self-care (01) ==
PROVIDERS: PCP Internal Medicine; Visit Provider Internal Medicine
DX: J40 Bronchitis, not specified as acute or chronic (principal); I10 Essential (primary) hypertension
CPT/HCPCS: 99213

== ENCOUNTER 2024-03-10 10:56 | Outpatient (REF) | payer MEDICAID, SELFPAY ==
[2024-03-10 14:13] LABS: PSA,Total (Free>4and<10) 3.88 ng/mL (0.00-4.00)
== END 2024-03-10 10:57 | disposition home or self-care (01) ==
LOC: HO.HMGCLDS 10:56
PROVIDERS: PCP Internal Medicine; Visit Provider Urology
DX: R97.20 Elevated prostate specific antigen [PSA] (principal)
CPT/HCPCS: 36415; 84153

== ENCOUNTER 2024-03-13 10:29 | Outpatient (AMB) | payer MEDICAID, SELFPAY ==
--- NOTE | 2024-03-13 10:33 | A.OFFVIS_ITS ---
Intake Visit Reasons: 6m/PSA/PVR(set) Intake Note: Patient is Present for PVR/ Urology Med: Finasteride Antibiotic Allergy: None Blood Thinner: None Last PVR: 56 Todays PVR: 17 Allergies tamsulosin Adverse Reaction (Intermediate, Verified 03/13/24 10:36) Hypotension Medication List - Last Reconciled 03/13/24 by Matt Ocampo MD amlodipine 5 mg PO DAILY benzonatate 100 mg PO BID PRN doxycycline hyclate 100 mg PO BID finasteride 5 mg PO DAILY 90 days lisinopril 10 mg PO DAILY HPI Comments Details: Angel is a pleasant Greek male. He is a patient of Dr. Aguillon. He is seen for following urologic conditions - lower urinary tract symptoms Six-month follow-up PVR 20 cc Greek translation provided by daughter who is comfortable translating Significant fall in PSA. Significant improvement in urinary performance. Minimal nocturia now. Happy with bladder emptying. Twelve month follow-up repeat PSA Lower urinary tract symptoms Progressive weakness of stream, occasional nocturia, incomplete bladder emptying Did not tolerate tamsulosin secondary to blood pressure issues PSA - 07/09 5.9 31%, 09/09 3.4, 03/11 3.8 Reassurance provided Finasteride continue 12 month follow-up [facility], [facility] Family History Father No problems noted. Mother No problems noted. Social History Housing: House Patient Tobacco Use Status: Never used Tobacco e-Cigarette/Vaping Use: Never Used Current occupational status: retired Cognitive needs: No Hearing needs: No Vision needs: Yes Review of Systems Const Denies chills and Denies fever(s) Card Reports no additional complaints and Denies syncope Resp Denies cough GI Denies abdominal pain and Denies heartburn Reports as per HPI and Denies change in libido Neuro Denies syncope Psych Denies change in libido Endo Denies change in libido Physical Exam Const General: cooperative, healthy appearing, comfortable and no acute distress Orientation/consciousness: patient oriented x3 HEENT Face and sinus: Yes normal facial exam Mouth: moist mucous membranes Neck Neck: Yes normal visual inspection, Yes full ROM and Yes trachea midline Chest Chest palpation & inspection: normal inspection of the chest Resp Effort & Inspection: normal respiratory effort, able to speak in complete sentences and no respiratory distress GI Inspection: Yes normal to inspection Back/Spine/Pelvis Cervical Spine: normal cervical lordosis Thoracic/Lumbar Spine: thoracic and lumbar spine normal to inspection Skin General skin exam: no rashes or lesions noted Neuro General: patient oriented x3, gait normal, tone normal and moves all extremities Extrem General: Yes normal to inspection and Yes capillary refill normal Office Procedures Post Void Residual Post Residual Void Post Void Residual (PVR): 17 83400-Ahym Void Residual by ultrasound Assessment & Plan Assessment & Plan (1) Elevated PSA: Comment: enlarged prostate 104 ml 10/09, increased from volume 85 ml in 2020, referred to urology Code(s): R97.20 - Elevated prostate specific antigen [PSA] Category: Medical (2) BPH (benign prostatic hyperplasia): Comment: Borderline elevated PSA around 5 in Mathew Code(s): N40.0 - Benign prostatic hyperplasia without lower urinary tract symptoms Category: Medical Qualifiers: Lower urinary tract symptom presence: symptoms present Lower urinary tract symptom detail: weak urinary stream Qualified Code(s): N40.1 - Benign prostatic hyperplasia with lower urinary tract symptoms; R39.12 - Poor urinary stream Plan Twelve month follow-up PSA Orders: Orders AMB Post Void Residual by ultrasound Today R33.9 - Retention of urine, unspecified Prostate Specific Antigen 364 Days R97.20 - Elevated prostate specific antigen [PSA] Medications: Refilled finasteride 5 mg PO DAILY 90 days 90 tabs 3RF N13.8 - Other obstructive and reflux uropathy, N40.1 - Benign prostatic hyperplasia with lower urinary tract symptoms, R97.20 - Elevated prostate specific antigen [PSA] Patient Instructions: Imaging studies, laboratory and physical exam results were discussed and reviewed in detail. No major barriers to patient understanding were identified. An opportunity to ask questions regarding the treatment plan was provided. All questions were answered. The patient expressed understanding and agreement with the above treatment plan. The patient is aware they should contact our office by phone for worsening of their current condition or the appearance of new urologic symptoms. Compliance is encouraged with any medications and followup testing that is ordered. It is a privilege to participate in the urologic care of your patient. If you h ave any questions or concerns regarding treatment for the above conditions, or other urologic issues, please do not hesitate to contact me. The office telephone contact is [phone]. This note is constructed using voice recognition software. While every effort has been made to ensure accuracy registration manager errors may have been included. Yours sincerely, Dr Matt Ocampo MD, PAT[facility] - Urology Providers of Expert, Compassionate Care for the Genitourinary System Coding Level of Care Code Est Pt Level 3 (82518) Diagnoses Elevated PSA R97.20 Benign prostatic hyperplasia with weak urinary stream N40.1; R39.12 Lower urinary tract symptom presence: symptoms present Lower urinary tract symptom detail: weak urinary stream CPT Codes Post Residual Void - PVR CPT Code: 30523-Fmat Void Residual by ultrasound ([id number])
== END 2024-03-13 10:50 | disposition home or self-care (01) ==
PROVIDERS: PCP Internal Medicine; Visit Provider Urology
DX: R97.20 Elevated prostate specific antigen [PSA] (principal); N40.1 Benign prostatic hyperplasia with lower urinary tract symptoms; R39.12 Poor urinary stream
CPT/HCPCS: 99213

== ENCOUNTER → 2024-03-13 10:29 | Outpatient (BNVA) | payer MEDICAID, SELFPAY | PROVIDERS: PCP Internal Medicine; Visit Provider Urology | DX: R97.20 Elevated prostate specific antigen [PSA] (principal); N40.1 Benign prostatic hyperplasia with lower urinary tract symptoms; N13.8 Other obstructive and reflux uropathy; R39.12 Poor urinary stream; R33.8 Other retention of urine; Z79.899 Other long term (current) drug therapy | CPT/HCPCS: 51798; 99212 ==

== ENCOUNTER 2024-05-26 10:16 | Outpatient (AMB) | payer MEDICAID, SELFPAY ==
[2024-05-26 10:19] VITALS: BP 122/74; PULSE 72; O2SAT 97; BMI 30.5
--- NOTE | 2024-05-26 10:19 | A.OFFPC_ITS ---
Vital Signs 05/26/24 10:19 Height 5 ft 11 in Weight 219 lb BMI 30.5 BP 122/74 Blood Pressure Location Rt brachial Position Sitting Pulse 72 Pulse Source Pulse Oximeter Pulse Oximetry (%) 97 Oxygen Delivery Method Room Air Intake Visit Reasons: 6 Month F/U Intake Note: Pt is here today for 6 months follow up visit. Allergies tamsulosin Adverse Reaction (Intermediate, Verified 05/26/24 10:21) Hypotension Medication List - Last Reconciled 05/26/24 by Sandra Aguillon MD amlodipine 5 mg PO DAILY finasteride 5 mg PO DAILY 90 days lisinopril 10 mg PO DAILY Tobacco use date assessed: 05/26/24 Fall risk assessment: No Falls in past year Last assessed Fall Risk: 05/26/24 Dental Screening Dental Screen Date: 02/25/24 HPI 6 Month F/U HPI Details Pt presents for f/u HTN, BPH, stable on meds. PFSH Medical History Hx of gallstones Family History Father No problems noted. Mother No problems noted. Social History Housing: House Patient Tobacco Use Status: Never used Tobacco e-Cigarette/Vaping Use: Never Used Current occupational status: retired Cognitive needs: No Hearing needs: No Vision needs: Yes Questionnaire Thrive Questionnaire Date Thrive assessed: 12/12/23 KATTY-7 AMB Questionnaire KATTY-7 Date KATTY - 7 assessed: 12/12/23 Source: Developed by Drs. Fawad Espinoza, Karlene Pardo, Danny Summers and colleagues, with an educational ninfa from [employer]. Review of Systems Const All systems reviewed & are unremarkable except as noted in HPI and below Eyes Reports no additional complaints ENT Reports no additional complaints Card Reports no additional complaints Resp Reports no additional complaints GI Reports no additional complaints Reports no additional complaints Physical exam (Primary Care) Vital Signs: Last Vital Signs Pulse 72 05/26/24 10:19 BP 122/74 05/26/24 10:19 Pulse Ox 97 05/26/24 10:19 Oxygen Delivery Method Room Air 05/26/24 10:19 BMI result Body Mass Index 30.5 Tobacco/Smoking Status: Tobacco use Status Tobacco use date assessed 05/26/24 05/26/24 10:25 Patient Tobacco Use Status Never used Tobacco 05/26/24 10:25 e-Cigarette/Vaping Use Never Used 05/26/24 10:25 Thrive Assessment: Date of Thrive Assessment Date Thrive assessed 12/12/23 05/26/24 10:25 Const General: no acute distress HENMT Head: Yes normal to inspection Ears: hearing grossly normal bilaterally Face and sinus: Yes normal facial exam Eyes General: appearance normal, both eyes and all related structures Neck Neck: Yes supple Resp Effort & Inspection: normal respiratory effort Auscultation: clear to auscultation bilaterally Cardio Rhythm: regular rhythm Heart sounds: S1 normal heart sound present and S2 normal heart sound present GI Inspection: Yes normal to inspection Palpation (GI): Soft to palpation Percussion: Yes normal to percussion Auscultation: normal bowel sounds Assessment and Plan Assessment & Plan (1) Elevated PSA: Comment: enlarged prostate 104 ml 10/09, increased from volume 85 ml in 2020, stable on finasteride, follows up with urology annually Code(s): R97.20 - Elevated prostate specific antigen [PSA] Plan: Continue finasteride (2) Annual physical exam: Code(s): Z00.00 - Encounter for general adult medical examination without abnormal findings (3) HTN (hypertension): Code(s): I10 - Essential (primary) hypertension Plan: Continue current medications, return in 6 months with a fasting labs before Orders: Orders Comprehensive [place]. Panel Fast 6 Months I10 - Essential (primary) hypertension, Z00.00 - Encounter for general adult medical examination without abnormal findings Complete Blood Count Auto Diff 6 Months I10 - Essential (primary) hypertension, Z00.00 - Encounter for general adult medical examination without abnormal findings Lipid Panel 6 Months I10 - Essential (primary) hypertension, Z00.00 - Encounter for general adult medical examination without abnormal findings UA w Microscopic 6 Months I10 - Essential (primary) hypertension, Z00.00 - Encounter for general adult medical examination without abnormal findings Coding Level of Care Code Est Pt Level 3 (69866) Diagnoses Elevated PSA R97.20 Annual physical exam Z00.00 HTN (hypertension) I10
== END 2024-05-26 11:01 | disposition home or self-care (01) ==
PROVIDERS: PCP Internal Medicine; Visit Provider Internal Medicine
DX: R97.20 Elevated prostate specific antigen [PSA] (principal); I10 Essential (primary) hypertension
CPT/HCPCS: 99213

== ENCOUNTER 2024-11-24 10:18 | Outpatient (REF) | payer MEDICAID, SELFPAY ==
[2024-11-24 13:10] LABS: MANUAL DIFF FLAG NO
[2024-11-24 13:21] LABS: Basophils Percent Auto 0.5 % (0-2); Eosinophils Absolute Auto 0.2 X10*3/uL (0.0-0.4); Eosinophils Percent Auto 2.7 % (0-4); Hematocrit 45.9 % (42.0-52.0); Hemoglobin 15.5 g/dl (14.0-18.0); Imm Gran Abs Auto 0.04 X10*3/uL (0.00-0.03); Imm Gran Pct Auto 0.7 % (0.0-0.4); Lymphocytes Absolute Auto 2.1 X10*3/uL (1.2-4.9); Lymphocytes Percent Auto 37.5 % (20-40); Mean Corpuscular HGB Conc 33.8 g/dl (31.0-36.0); Mean Corpuscular Hemoglobin 30.4 pg (27.0-33.0); Monocytes Absolute Auto 0.4 X10*3/uL (0.1-1.2); Monocytes Percent Auto 7.8 % (2-11); Neutrophils Absolute Auto 2.9 x10*3/uL (2.0-8.3); Neutrophils Percent Auto 50.8 % (45-73); Platelet Count 219 X10*3/uL (160-400); Red Cell Distribution Width 12.3 % (11.0-16.0); White Blood Count 5.6 X10*3/uL (4.8-10.8)
[2024-11-24 13:39] LABS: Appearance Urine Clear; Color Urine Yellow; Glucose Urine UA Negative (Negative); Leukocyte Esterase Urine Negative (Negative); Nitrite Urine Negative (Negative); Urine Blood Negative (Negative); Urine Ketones Negative (Negative); Urine Protein Negative (Neg-Trace)
[2024-11-24 13:43] LABS: Bacteria Urine None Seen (None Seen); Hyaline Casts Urine 0-2 /LPF (0-2); RBC Urine 0-2 /HPF (0-2); Squamous Epithelial Cell Urine 0-2 /HPF (0-2); WBC Urine 0-5 /HPF (0-5)
[2024-11-24 14:00] LABS: Alanine Aminotransferase 19 U/L (0-40); Albumin Level 4.5 g/dL (3.5-5.0); Alkaline Phosphatase 68 U/L (39-117); Anion Gap 9 (12-20); Aspartate Amino Transferase 22 U/L (5-37); Bilirubin Total 0.8 mg/dL (0.0-1.0); Blood Urea Nitrogen 14 mg/dL (9-16); Calcium 9.1 mg/dL (8.4-10.2); Carbon Dioxide 29 mmol/L (22-29); Chloride 107 mmol/L (96-108); Cholesterol 148 mg/dL (<200); Estimated Glomerular Filt Rate 58; Glucose Fasting 98 mg/dL (60-99); HDL Cholesterol 41 mg/dL (>40); LDL Cholesterol Calculated 92 mg/dL (<100); Potassium 4.1 mmol/L (3.3-5.1); Sodium 141 mmol/L (135-145); Total Protein 7.3 g/dL (6.5-8.0); Triglycerides 76 mg/dL (<150)
== END 2024-11-24 10:19 | disposition home or self-care (01) ==
LOC: HO.HMGCLDS 10:18
PROVIDERS: PCP Internal Medicine; Visit Provider Internal Medicine
DX: Z00.00 Encounter for general adult medical examination without abnormal findings (principal); I10 Essential (primary) hypertension
CPT/HCPCS: 36415; 80053; 80061; 81001; 85025

== ENCOUNTER 2024-11-26 10:43 | Outpatient (AMB) | payer MEDICAID, SELFPAY ==
[2024-11-26 10:44] VITALS: BP 118/76; PULSE 73; O2SAT 96; BMI 30.4
--- NOTE | 2024-11-26 10:44 | A.OFFPC_ITS ---
Vital Signs 11/26/24 10:44 Height 5 ft 11 in Weight 218 lb BMI 30.4 BP 118/76 Blood Pressure Location Rt brachial Position Sitting Pulse 73 Pulse Source Pulse Oximeter Pulse Oximetry (%) 96 Oxygen Delivery Method Room Air Intake Visit Reasons: 6 months follow up Intake Note: Pt is here today for 6 months follow up visit. Allergies tamsulosin Adverse Reaction (Intermediate, Verified 11/26/24 10:46) Hypotension Medication List - Last Reconciled 11/26/24 by Sandra Aguillon MD amlodipine 5 mg PO DAILY finasteride 5 mg PO DAILY 90 days lisinopril 10 mg PO DAILY Tobacco use date assessed: 11/26/24 Fall risk assessment: No Falls in past year Last assessed Fall Risk: 11/26/24 Dental Screening Dental Screen Date: 11/26/24 Did you have a dental visit in the last 12 months?: Yes Did you have a dental problem in the last 6 months where you did not have access to dental care?: No Was dental information given to patient?: Patient has dentist HPI 6 months follow up HPI Details Patient presents for the follow-up on hypertension and BPH stable on current medications. He reports chronic lower back pain radiating to both lower extremities, worse when sitting for long time. Patient denies any weakness numbness in extremities, change in bowel or bladder function. [facility] Medical History Hx of gallstones Family History Father No problems noted. Mother No problems noted. Social History Housing: House Patient Tobacco Use Status: Never used Tobacco e-Cigarette/Vaping Use: Never Used Current occupational status: retired Cognitive needs: No Hearing needs: No Vision needs: Yes Questionnaire PHQ-9 Over the last 2 weeks, how often have you been bothered by any of the following problems? 1. Little interest or pleasure in doing things: not at all 2. Feeling down, depressed, or hopeless: not at all 3. Trouble falling or staying asleep, or sleeping too much: not at all 4. Feeling tired or having little energy: not at all 5. Poor appetite or overeating: not at all 6. Feeling bad about yourself - or that you are a failure or have let yourself or your family down: not at all 7. Trouble concentrating on things, such as reading the newspaper or watching television: not at all 8. Moving or speaking so slowly that other people could have noticed. Or the opposite - being so fidgety or restless that you have been moving around a lot more than usual: not at all 9. Thoughts that you would be better off or of hurting yourself in some way: not at all Total score: 0 Depression Screening Interpretation: Negative Depression Screening Done: Yes 53651 - PHQ-9 Billing: Yes Source: Developed by Drs. Fawad Espinoza, Karlene Pardo, Danny Summers and colleagues, with an educational ninfa from [employer]. Thrive Questionnaire Date Thrive assessed: 11/26/24 I am a: Patient What is your living situation today?: I have a steady place to live Within the past 12 months, did the food you bought not last and you didn't have the money to get more?: Never true Within the past 12 months, did you worry whether your food would run out before you got money to buy more?: Never true Do you have trouble paying for medicines?: No Do you have trouble getting transportation to medical appointments?: No Do you have trouble paying your heating and electricity bill?: No Do you have trouble taking care of your child, family member or friend?: No Do you have trouble with day-to-day activities such as bathing, preparing meals, shopping, managing finances, etc.?: No Are you currently unemployed and looking for a job?: No Are you interested in more education?: No Please select the resources that you would like help with: None THRIVE Score: 0 AUDIT C Alcohol Use Questionnaire (AUDIT-C) 1. How often do you have a drink containing alcohol?: Never 3. How often do you have six or more drinks on one occasion?: Never Total Score: 0 KATTY-7 AMB Questionnaire KATTY-7 Date KATTY - 7 assessed: 11/26/24 Feeling nervous, anxious, or on edge: 0 = Not at all Not being able to stop or control worryin = Not at all Worrying too much about different things: 0 = Not at all Trouble relaxin = Not at all Being so restless that it is hard to sit still: 0 = Not at all Becoming easily annoyed or irritable: 0 = Not at all Feeling afraid as if something awful might happen: 0 = Not at all Total KATTY-7 score (0-4 normal; 5-9 mild; 10-14 moderate; 15-21 severe): 0 Source: Developed by Drs. Fawad Espinoza, Karlene Pardo, Danny Summers and colleagues, with an educational ninfa from [employer]. KATTY-7 Assessment Billing KATTY-7 Assessment Tool: KATTY-7 Assessment 00481 Review of Systems Const All systems reviewed & are unremarkable except as noted in HPI and below Reports no additional complaints Eyes Reports no additional complaints ENT Reports no additional complaints Card Reports no additional complaints Resp Reports no additional complaints GI Reports no additional complaints Reports no additional complaints Physical exam (Primary Care) Vital Signs: Last Vital Signs Pulse 73 11/26/24 10:44 BP 118/76 11/26/24 10:44 Pulse Ox 96 11/26/24 10:44 Oxygen Delivery Method Room Air 11/26/24 10:44 BMI result Body Mass Index 30.4 Tobacco/Smoking Status: Tobacco use Status Tobacco use date assessed 11/26/24 11/26/24 10:51 Patient Tobacco Use Status Never used Tobacco 11/26/24 10:45 e-Cigarette/Vaping Use Never Used 11/26/24 10:45 PHQ-9: PHQ-9 Score PHQ-9: Total score 0 11/26/24 11:27 Depression Screening Interpretation: Negative Thrive Assessment: Date of Thrive Assessment Date Thrive assessed 11/26/24 11/26/24 10:45 Const General: no acute distress HENMT Head: Yes normal to inspection Ears: hearing grossly normal bilaterally General nose exam: Normal external nose present Throat: Yes posterior oropharynx normal Neck Neck: Yes supple Resp Effort & Inspection: normal respiratory effort Auscultation: clear to auscultation bilaterally Cardio Rhythm: regular rhythm Heart sounds: S1 normal heart sound present and S2 normal heart sound present GI Inspection: Yes normal to inspection Palpation (GI): Soft to palpation Percussion: Yes normal to percussion Auscultation: normal bowel sounds Back/Spine/Pelvis Other: Paraspinal tenderness in the lower lumbar region ,straight leg rising 90 degrees bilaterally, deep tendon reflexes 2+ bilaterally Coding Level of Care Code Est Pt Level 4 (54538) Diagnoses Sciatica M54.30 HTN (hypertension) I10 Benign prostatic hyperplasia with weak urinary stream N40.1; R39.12 Lower urinary tract symptom detail: weak urinary stream Lower urinary tract symptom presence: symptoms present Additional Codes KATTY-7 Assessment Billing - KATTY-7 Assessment Tool: KATTY-7 Assessment 24797 ([id number]) PHQ-9 - 21636 - PHQ-9 Billing: Yes ([id number]) Assessment & Plan Assessment & Plan (1) Sciatica: Code(s): M54.30 - Sciatica, unspecified side Category: Medical Plan: Referred to physical therapy (2) HTN (hypertension): Code(s): I10 - Essential (primary) hypertension Category: Medical Plan: Continue current medications (3) BPH (benign prostatic hyperplasia): Comment: Borderline elevated PSA around 5 in [place] Code(s): N40.0 - Benign prostatic hyperplasia without lower urinary tract symptoms Category: Medical Qualifiers: Lower urinary tract symptom detail: weak urinary stream Lower urinary tract symptom presence: symptoms present Qualified Code(s): N40.1 - Benign prostatic hyperplasia with lower urinary tract symptoms; R39.12 - Poor urinary stream Plan: Continue finasteride follow-up with Urology Orders: Orders Comprehensive [place]. Panel Fast 1 Year I10 - Essential (primary) hypertension, N40.1 - Benign prostatic hyperplasia with lower urinary tract symptoms, R39.12 - Poor urinary stream, Z00.00 - Encounter for general adult medical examination without abnormal findings Complete Blood Count Auto Diff 1 Year I10 - Essential (primary) hypertension, N40.1 - Benign prostatic hyperplasia with lower urinary tract symptoms, R39.12 - Poor urinary stream, Z00.00 - Encounter for general adult medical examination without abnormal findings Lipid Panel 1 Year I10 - Essential (primary) hypertension, N40.1 - Benign prostatic hyperplasia with lower urinary tract symptoms, R39.12 - Poor urinary stream, Z00.00 - Encounter for general adult medical examination without abnormal findings PT Evaluation and Treatment Today M54.30 - Sciatica, unspecified side UA w Microscopic 1 Year I10 - Essential (primary) hypertension, N40.1 - Benign prostatic hyperplasia with lower urinary tract symptoms, R39.12 - Poor urinary stream, Z00.00 - Encounter for general adult medical examination without abnormal findings Medications: Refilled finasteride 5 mg PO DAILY 90 tabs 3RF 90 days N13.8 - Other obstructive and reflux uropathy, N40.1 - Benign prostatic hyperplasia with lower urinary tract symptoms, R97.20 - Elevated prostate specific antigen [PSA] finasteride 5 mg PO DAILY 90 days 90 tabs 3RF N13.8 - Other obstructive and reflux uropathy, N40.1 - Benign prostatic hyperplasia with lower urinary tract symptoms, R97.20 - Elevated prostate specific antigen [PSA]
== END 2024-11-26 11:30 | disposition home or self-care (01) ==
PROVIDERS: PCP Internal Medicine; Visit Provider Internal Medicine
DX: M54.30 Sciatica, unspecified side (principal); I10 Essential (primary) hypertension; N40.1 Benign prostatic hyperplasia with lower urinary tract symptoms; R39.12 Poor urinary stream

== ENCOUNTER → 2024-11-26 10:43 | Outpatient (BNVA) | payer MEDICAID, SELFPAY | PROVIDERS: PCP Internal Medicine; Visit Provider Internal Medicine | DX: I10 Essential (primary) hypertension (principal); M54.30 Sciatica, unspecified side; N40.1 Benign prostatic hyperplasia with lower urinary tract symptoms; R39.12 Poor urinary stream; R97.20 Elevated prostate specific antigen [PSA]; N13.8 Other obstructive and reflux uropathy | CPT/HCPCS: 96127; 99212 ==

== ENCOUNTER 2024-12-25 09:00 | Outpatient (RCR) | payer MEDICAID, SELFPAY ==
--- NOTE | 2024-12-01 09:43 | MHC.PT.EP ---
[facility] [place] [facility] [place] Office [place] [facility] [address] Tish Gage [address] [phone] F: [phone] F: [phone] F: [phone] F: [phone] Physical Therapy Plan of Care Date of Evaluation: 12/01/24 Date of Surgery: none Diagnosis: sciatica Assessment: Patient is a 74 year old R handed male who presents with s/s consistent with sciatica, low back pain. He does not work and is fairly sedentary at this time. Patient past medical history is unremarkable. Current impairments include pain, posture, body mechanics, ROM, strength, activity tolerance and functional mobility. Functional limitations include decreased ability to bend, transfer, stand, lift, carry, push, pull and sleep. Patient is motivated with good rehab potential. Skilled PT will address impairments and functional limitations in order to achieve goals. Frequency and Duration: The patient will be seen 1x/week 5 weeks Short Term Goals: I with HEP - 2 weeks AROM rotation 50% and pain free - 3 weeks Able to walk 10 minutes without increased pain - 3 weeks pain free sleep through the night - 3 weeks [employer] Goals: 90/90 lacking < 30 b/l - 5 weeks Gastroc tightness min - 5 weeks Oswestry 10% or less - 5 weeks Max pain with daily activities - /10 - 5 weeks Treatment Plan: Modalities to reduce pain, spasms and effusion. Manual therapy to restore motion and function. Therapeutic exercise to improve strength and flexibility. Neuromuscular re-education for posture and balance. Therapeutic activities to return to functional activities of daily living. Electronically signed by: Aston Lozano, PT Please sign and return to therapist. Thank you for your referral.
--- NOTE | 2025-02-10 13:55 | MHC.PT.DC ---
[facility] [place] Office [place] Office [place] Office [address] Tish Gage [address] [phone] F: [phone] F: [phone] F: [phone] F: [phone] Physical Therapy Discharge Report Diagnosis: sciatica Date of Surgery: none Date of Evaluation: 12/01/24 Date of Discharge: Treatments to Date: 4 Cancellations to Date: No Shows to Date: Discharge Status: Improved Function Independent with HEP Discharge Summary: 12/25/24: reviewed HEP. pt with no s/s. I with HEP. wiling to d/c to HEP at this time. progressed towards or met all goals. 12/18/24: pt 10 minutes late and accommodated. held on progression. will progress NV. 12/11/24: pt progressing well overall. compliant with HEP. daughter here to interpret per pt preference. HEP updated. Patient is a 74 year old R handed male who presents with s/s consistent with sciatica, low back pain. He does not work and is fairly sedentary at this time. Patient past medical history is unremarkable. Current impairments include pain, posture, body mechanics, ROM, strength, activity tolerance and functional mobility. Functional limitations include decreased ability to bend, transfer, stand, lift, carry, push, pull and sleep. Patient is motivated with good rehab potential. Skilled PT will address impairments and functional limitations in order to achieve goals. Electronically signed by: Aston Lozano, PT Please sign and return to therapist. Thank you for your referral.
== END 2025-02-10 13:56 | disposition home or self-care (01) ==
LOC: HO.PTCHIC 09:00
PROVIDERS: PCP Internal Medicine; Visit Provider Internal Medicine
DX: M54.30 Sciatica, unspecified side (principal)
CPT/HCPCS: 97110; 97161

== ENCOUNTER 2025-03-02 10:04 | Outpatient (REF) | payer MEDICAID, SELFPAY ==
[2025-03-02 14:08] LABS: Prostate Specific Antigen 2.92 ng/mL (<0.05-4.0)
== END 2025-03-02 10:05 | disposition home or self-care (01) ==
LOC: HO.HMGCLDS 10:04
PROVIDERS: Urology; PCP Internal Medicine; Visit Provider Internal Medicine
DX: R97.20 Elevated prostate specific antigen [PSA] (principal)
CPT/HCPCS: 36415; 84153

== ENCOUNTER 2025-03-12 09:47 | Outpatient (AMB) | payer MEDICAID, SELFPAY ==
--- NOTE | 2025-03-12 09:49 | MHC.OFFVIS ---
Intake Visit Reasons: 1y/PSA Intake Note: Patient is present for a 1 year follow up/PSA Urology Med: Finasteride Antibiotic Allergy: None Blood Thinner: None PVR:38ml Allergies tamsulosin Adverse Reaction (Intermediate, Verified 03/12/25 09:54) Hypotension HPI Comments Details: Angel is a pleasant Pakistani male. He is a patient of Dr. Aguillon. He is seen for following urologic conditions - lower urinary tract symptoms Yearly follow-up PVR 40 cc Pakistani translation provided by son who is comfortable translating Continued low PSA Significant improvement in urinary performance. Minimal nocturia now. Happy with bladder emptying. Twelve month follow-up repeat PSA Lower urinary tract symptoms Progressive weakness of stream, occasional nocturia, incomplete bladder emptying Did not tolerate tamsulosin secondary to blood pressure issues PSA - 07/09 5.9 31%, 09/09 3.4, 03/11 3.8, 03/12 2.9 Reassurance provided Finasteride continue 12 month follow-up PFSH Medical History Hx of gallstones Family History Father No problems noted. Mother No problems noted. Social History Housing: House Patient Tobacco Use Status: Never used Tobacco e-Cigarette/Vaping Use: Never Used Current occupational status: retired Cognitive needs: No Hearing needs: No Vision needs: Yes Review of Systems Const Denies chills and Denies fever(s) Card Reports no additional complaints and Denies syncope Resp Denies cough GI Denies abdominal pain and Denies heartburn Reports as per HPI and Denies change in libido Neuro Denies syncope Psych Denies change in libido Endo Denies change in libido Physical Exam Const General: cooperative, healthy appearing, comfortable and no acute distress Orientation/consciousness: patient oriented x3 HEENT Face and sinus: Yes normal facial exam Mouth: moist mucous membranes Neck Neck: Yes normal visual inspection, Yes full ROM and Yes trachea midline Chest Chest palpation & inspection: normal inspection of the chest Resp Effort & Inspection: normal respiratory effort, able to speak in complete sentences and no respiratory distress GI Inspection: Yes normal to inspection Back/Spine/Pelvis Cervical Spine: normal cervical lordosis Thoracic/Lumbar Spine: thoracic and lumbar spine normal to inspection Skin General skin exam: no rashes or lesions noted Neuro General: patient oriented x3, gait normal, tone normal and moves all extremities Extrem General: Yes normal to inspection and Yes capillary refill normal Results AMB Urinalysis, Automated UA Leukoctes 0 Dusty/uL Last Edit by Pat Alvarengatiz on 03/12/25 10:14 UA Nitrite Negative Last Edit by Pat Alvarengatiz on 03/12/25 10:14 UA Urobilinogen 1 mg/dL Last Edit by Pat Alvarengatiz on 03/12/25 10:14 UA Protein 0 mg/dL Last Edit by Pat Alvarengatiz on 03/12/25 10:14 UA pH 6.5 Last Edit by Pat Alvarengatiz on 03/12/25 10:14 UA Blood 0 Antonio/uL Last Edit by Pat Alvarengatiz on 03/12/25 10:14 UA Specific [place] 1.015 Last Edit by Pat Alvarengatiz on 03/12/25 10:14 UA Ketone Negative Last Edit by Pat Alvarengatiz on 03/12/25 10:14 UA Bilirubin 0 mg/dL Last Edit by Pat Alvarengatiz on 03/12/25 10:14 UA Glucose 0 mg/dL Last Edit by Pat Alvarengatiz on 03/12/25 10:14 Assessment & Plan Assessment & Plan (1) Elevated PSA: Comment: enlarged prostate 104 ml 10/09, increased from volume 85 ml in 2020, stable on finasteride, follows up with urology annually Code(s): R97.20 - Elevated prostate specific antigen [PSA] Category: Medical (2) BPH (benign prostatic hyperplasia): Comment: Borderline elevated PSA around 5 in [place] Code(s): N40.0 - Benign prostatic hyperplasia without lower urinary tract symptoms Category: Medical Qualifiers: Lower urinary tract symptom presence: symptoms present Lower urinary tract symptom detail: weak urinary stream Qualified Code(s): N40.1 - Benign prostatic hyperplasia with lower urinary tract symptoms; R39.12 - Poor urinary stream (3) Urinary retention: Comment: 09/08 bladder US Code(s): R33.9 - Retention of urine, unspecified Category: Medical Plan 12 month follow-up PSA office Orders: Orders Prostate Specific Antigen 12 Months R97.20 - Elevated prostate specific antigen [PSA] Medications: Refilled finasteride 5 mg PO DAILY 90 days 90 tabs 3RF N13.8 - Other obstructive and reflux uropathy, N40.1 - Benign prostatic hyperplasia with lower urinary tract symptoms, R97.20 - Elevated prostate specific antigen [PSA] Patient Instructions: This note is constructed using voice recognition software. While every effort has been made to ensure accuracy pressurised container filler errors may have been included. Imaging studies, laboratory and physical exam results were discussed and reviewed in detail. No major barriers to patient understanding were identified. An opportunity to ask questions regarding the treatment plan was provided. All questions were answered. The patient expressed understanding and agreement with the above treatment plan. The patient is aware they should contact our office by phone for worsening of their current condition or the appearance of new urologic symptoms. Compliance is encouraged with any medications and followup testing that is ordered. It is a privilege to participate in the urologic care of your patient. If you have any questions or concerns regarding treatment for the above conditions, or other urologic issues, please do not hesitate to contact me. The office telephone contact is [phone]. Sincerely, Dr Matt Ocampo MD, [facility] - Urology Compassionate Specialist Care for the Genitourinary System Coding Level of Care Code Est Pt Level 4 (64191) Complex EM visit Add On G2211 Diagnoses Elevated PSA R97.20 Benign prostatic hyperplasia with weak urinary stream N40.1; R39.12 Lower urinary tract symptom presence: symptoms present Lower urinary tract symptom detail: weak urinary stream Urinary retention R33.9
== END 2025-03-12 10:13 | disposition home or self-care (01) ==
LOC: HO.HUSH 09:47
PROVIDERS: PCP Internal Medicine; Visit Provider Urology
DX: R97.20 Elevated prostate specific antigen [PSA] (principal); N40.1 Benign prostatic hyperplasia with lower urinary tract symptoms; R39.12 Poor urinary stream; R33.9 Retention of urine, unspecified; Z13.9 Encounter for screening, unspecified
CPT/HCPCS: 99214

== ENCOUNTER → 2025-03-12 09:47 | Outpatient (BNVA) | payer MEDICAID, SELFPAY | PROVIDERS: PCP Internal Medicine; Visit Provider Urology | DX: R97.20 Elevated prostate specific antigen [PSA] (principal); N40.1 Benign prostatic hyperplasia with lower urinary tract symptoms; R39.12 Poor urinary stream; R33.8 Other retention of urine | CPT/HCPCS: 81003; 99212 ==

== ENCOUNTER 2025-06-11 13:40 | Outpatient (AMB) | payer MEDICAID, SELFPAY ==
--- NOTE | 2025-06-11 13:50 | A.OFFPC_ITS ---
Vital Signs 06/11/25 13:51 06/11/25 13:53 Height 5 ft 11 in 5 ft 11 in Weight 213 lb 213 lb BMI 29.7 29.7 BP 128/72 Blood Pressure Location Lt brachial Lt brachial Position Sitting Sitting Respiration 16 Pulse 68 Pulse Source Pulse Oximeter Pulse Oximeter Temp 98.1 F Temp Source Oral Pulse Oximetry (%) 94 Oxygen Delivery Method Room Air Room Air Intake Visit Reasons: ER follow up pneumonia Distribution Clerk Required: No Accompanied by: Self / Same As Patient Allergies tamsulosin Adverse Reaction (Intermediate, Verified 06/11/25 13:50) Hypotension Medication List - Last Reconciled 06/11/25 by Sandra Aguillon MD amlodipine 5 mg PO DAILY finasteride 5 mg PO DAILY 90 days lisinopril 10 mg PO DAILY Tobacco use date assessed: 11/26/24 Fall risk assessment: No Falls in past year Last assessed Fall Risk: 06/11/25 Dental Screening Dental Screen Date: 06/11/25 Did you have a dental visit in the last 12 months?: Yes Did you have a dental problem in the last 6 months where you did not have access to dental care?: No Was dental information given to patient?: Patient has dentist HPI ER follow up pneumonia HPI Details Patient presents for the follow-up of ER visit to [facility]. Patient developed acute onset of shortness of breath, wheezing and chest tightness. He called EMT and was taken to the ER. Patient improved without treatment. He was prescribed antibiotic for presumed pneumonia but never had any cough fever chills or abnormal x-ray. Patient had similar episodes in the past was hospitalized in [place] and underwent extensive pulmonary workup including PFTs, which was negative. Patient has similar episodes once or twice a year usually triggered by dust. He denies seasonal allergy symptoms reports postnasal drip mainly in the winter. Hypertension is controlled on current medications [facility] Medical History Hx of gallstones Family History Father No problems noted. Mother No problems noted. Social History Housing: House Patient Tobacco Use Status: Never used Tobacco e-Cigarette/Vaping Use: Never Used Current occupational status: retired Cognitive needs: No Hearing needs: No Vision needs: Yes Questionnaire Thrive Questionnaire Date Thrive assessed: 11/26/24 I am a: Patient What is your living situation today?: I have a steady place to live Within the past 12 months, did the food you bought not last and you didn't have the money to get more?: Never true Within the past 12 months, did you worry whether your food would run out before you got money to buy more?: Never true Do you have trouble paying for medicines?: No Do you have trouble getting transportation to medical appointments?: No Do you have trouble paying your heating and electricity bill?: No Do you have trouble taking care of your child, family member or friend?: No Do you have trouble with day-to-day activities such as bathing, preparing meals, shopping, managing finances, etc.?: No Are you currently unemployed and looking for a job?: No Are you interested in more education?: No Please select the resources that you would like help with: None THRIVE Score: 0 AUDIT C Alcohol Use Questionnaire (AUDIT-C) 3. How often do you have six or more drinks on one occasion?: Never Total Score: 0 KATTY-7 AMB Questionnaire KATTY-7 Date KATTY - 7 assessed: 11/26/24 Feeling nervous, anxious, or on edge: 0 = Not at all Not being able to stop or control worryin = Not at all Worrying too much about different things: 0 = Not at all Trouble relaxin = Not at all Being so restless that it is hard to sit still: 0 = Not at all Becoming easily annoyed or irritable: 0 = Not at all Feeling afraid as if something awful might happen: 0 = Not at all Total KATTY-7 score (0-4 normal; 5-9 mild; 10-14 moderate; 15-21 severe): 0 Source: Developed by Drs. Fawad Espinoza, Karlene Pardo, Danny Summers and colleagues, with an educational ninfa from [employer]. KATTY-7 Assessment Billing KATTY-7 Assessment Tool: KATTY-7 Assessment 90637 Review of Systems Const All systems reviewed & are unremarkable except as noted in HPI and below Eyes Reports no additional complaints ENT Reports no additional complaints Card Reports no additional complaints Resp Reports no additional complaints GI Reports no additional complaints Reports no additional complaints Physical exam (Primary Care) Vital Signs: Last Vital Signs Temp 98.1 F 06/11/25 13:53 Pulse 68 06/11/25 13:53 Resp 16 06/11/25 13:53 BP 128/72 06/11/25 13:53 Pulse Ox 94 06/11/25 13:53 Oxygen Delivery Method Room Air 06/11/25 13:53 BMI result Body Mass Index 29.7 Tobacco/Smoking Status: Tobacco use Status Tobacco use date assessed 11/26/24 06/11/25 13:58 Patient Tobacco Use Status Never used Tobacco 06/11/25 13:58 e-Cigarette/Vaping Use Never Used 06/11/25 13:58 Thrive Assessment: Date of Thrive Assessment Date Thrive assessed 11/26/24 06/11/25 13:58 Const General: no acute distress HENMT Head: Yes normal to inspection Face and sinus: Yes normal facial exam Eyes General: appearance normal, both eyes and all related structures Neck Neck: Yes no lymphadenopathy and Yes supple Resp Effort & Inspection: normal respiratory effort Auscultation: clear to auscultation bilaterally Cardio Rhythm: regular rhythm Heart sounds: S1 normal heart sound present and S2 normal heart sound present GI Inspection: Yes normal to inspection Palpation (GI): Soft to palpation Percussion: Yes normal to percussion Auscultation: normal bowel sounds Coding Level of Care Code Est Pt Level 3 (92792) Diagnoses HTN (hypertension) I10 Bronchospasm J98.01 Additional Codes KATTY-7 Assessment Billing - KATTY-7 Assessment Tool: KATTY-7 Assessment 96720 ([id number]) Assessment & Plan Assessment & Plan (1) HTN (hypertension): Code(s): I10 - Essential (primary) hypertension Category: Medical Plan: Continue current medications (2) Bronchospasm: Comment: Negative workup including PFTs for asthma Code(s): J98.01 - Acute bronchospasm Category: Medical Plan: Albuterol prescribed to use as needed, allergy testing were recommended but patient declined Medications: New albuterol sulfate 90 mcg/actuation (Ventolin HFA) 2 puffs inhalation Q6H PRN 6.7 grams 1RF shortness of breath or wheezing
[2025-06-11 13:51] VITALS: BMI 29.7
[2025-06-11 13:53] VITALS: BP 128/72; PULSE 68; RESP 16; TEMP 36.7; O2SAT 94; BMI 29.7
== END 2025-06-11 14:53 | disposition home or self-care (01) ==
LOC: HO.HMCC 13:41
PROVIDERS: PCP Internal Medicine; Visit Provider Internal Medicine
DX: I10 Essential (primary) hypertension (principal); J98.01 Acute bronchospasm

== ENCOUNTER → 2025-06-11 13:40 | Outpatient (BNVA) | payer MEDICAID, SELFPAY | PROVIDERS: PCP Internal Medicine; Visit Provider Internal Medicine | DX: I10 Essential (primary) hypertension (principal); J98.01 Acute bronchospasm; Z87.01 Personal history of pneumonia (recurrent) | CPT/HCPCS: 96127; 99212 ==